=== PATIENT | female | born 1975 | race Caucasian/White ===

== ENCOUNTER 2019-04-14 01:20 | Emergency (ER) | payer OTHER ==
--- NOTE | 2019-04-14 05:45 | RADIOLOGY REPORT (SQ) ---
EXAM DESCRIPTION: XR ANKLE 3 OR MORE VIEWS COMPLETED DATE/TME: 04/14/2019 00:00 CLINICAL HISTORY: 43 years, Female, bone tenderness COMPARISON: None. NUMBER OF VIEWS: Three TECHNIQUE: Three views of the right ankle LIMITATIONS: None. FINDINGS: There is no acute fracture or dislocation. The ankle mortise is intact. There is mild soft tissue swelling along the lateral aspect of the ankle. IMPRESSION: No acute fracture or dislocation. copyright 2010 [employer]- All Rights Reserved
--- NOTE | 2019-04-14 05:55 | ER Document Report ---
HPI - HPI Patient complains to provider of: ankle injury Time Seen by Provider: 04/14/19 05:47 Pain Level: 4 Context: Healthy 43-year-old female presents emergency department with chief complaint of a right ankle injury after playing beach volleyball this evening. She said she was jumping up to spike a ball and she landed and inverted her right foot, heard a pop and slightly felt a pop, and noticed swelling shortly thereafter. She was initially able to bear some weight on it but no longer is able to. She does have a normal distal neurovascular exam. Patient is able to wiggle her toes and plantar and dorsiflex. - REPRODUCTIVE Reproductive: DENIES: : Past Medical History - Social History Smoking Status: Unknown if Ever Smoked Family History: None Vertical Provider Document - CONSTITUTIONAL Notes: PHYSICAL EXAMINATION: Reviewed vital signs and charting by RN GENERAL: Alert, interacts well. No acute distress. HEAD: Normocephalic, atraumatic. EYES: Pupils equal and round. Extraocular movements intact. EXTREMITIES: Moves all 4 extremities spontaneously. Edema over the right lateral malleolus with acute 2+ DP 2+ PT pulse right foot, brisk cap refill, normal color PSYCH: Normal affect, normal mood. SKIN: Warm, dry, normal turgor. No rashes or lesions noted. Course - Re-evaluation Re-evalutation: 04/14/19 05:58 Overall well-appearing presenting with an acute ankle sprain. X-rays showed no fracture dislocation. And is to place her in an ankle stirrup and provide crutches with education. She is stable for discharge. - Vital Signs Vital signs: Temp Pulse Resp BP Pulse Ox 98.0 F 82 18 93/59 L 98 04/14/19 01:28 04/14/19 01:28 04/14/19 01:28 04/14/19 01:28 04/14/19 01:28 Procedures - Immobilization Right Ankle Pre-Proc Neuro Vasc Exam: Normal Immobilizer type: Ankle stirrup Performed by: PCT Post-Proc Neuro Vasc Exam: Normal Discharge - Discharge Clinical Impression: Ankle sprain Qualifiers: Encounter type: initial encounter Involved ligament of ankle: other ligament Laterality: right Qualified Code(s): S93.491A - Sprain of other ligament of right ankle, initial encounter Condition: Good Disposition: HOME, SELF-CARE Additional Instructions: You have an ankle sprain. Treatment is to stay off your foot for the next several days. Please use crutches for at least 2 days. After 2 days you can slowly start to try to bear weight on your foot. If you are still having significant pain with weightbearing then continued use of crutches for another 24-48 hours. You can stop using the crutches when you are able to bear weight on your foot without having significant pain and walk without significant pain. Please return to the ER in 1 week for reevaluation if you are still having use of crutches because it is too painful to bear weight on your ankle. No sporting activities or running for at least 2 weeks.
[2019-04-14 06:16] VITALS: BP 109/76
== END 2019-04-14 07:43 | disposition home or self-care (01) ==
LOC: ER 01:20
DX: S93.401A Sprain of unspecified ligament of right ankle, initial encounter (principal); X50.0XXA Overexertion from strenuous movement or load, initial encounter; Y93.68 Activity, volleyball (beach) (court); Y92.832 Beach as the place of occurrence of the external cause
CPT/HCPCS: 99283; 73610; L1902